=== PATIENT | female | born 1955 | race Caucasian/White ===

== ENCOUNTER 2019-09-18 21:37 | Emergency (ER) | payer OTHER ==
[~2019-09-18] VITALS: Ht 175.3 cm; Wt 108.9 kg
[2019-09-18] MEDS ORDERED: ONDANSETRON HCL 4 MG/2 ML VIAL IV ONE (23:00)
[2019-09-18] MEDS ORDERED: SODIUM CHLORIDE 0.9% 1,000 ML IV ONE (23:00)
[2019-09-18 23:43] LABS: Basophils # (auto) 0 10 ^3/uL (0-0.2); Eosinophils # (auto) 0 10 ^3/uL (0-0.8); Eosinophils % (auto) 0.1 % (0.0-7.0); Hematocrit 39.2 % (36.0-46.0); Lymphocytes # (auto) 0.8 10 ^3/uL (0.4-5.4); Lymphocytes % (auto) 7.5 % (10.0-50.0); Mean Corpuscular Volume 101.4 fL (80.0-100.0); Monocytes # (auto) 0.5 10 ^3/uL (0-1.3); Red Blood Cells 3.87 10^6/uL (4.0-5.20)
[2019-09-18 23:45] LABS: Basophils % (auto) 0.4 % (0.0-2.0); Hemoglobin 13.2 g/dL (12.2-16.2); Mean Corpuscular Hemoglobin 34.2 pg (28.0-32.0); Mean Corpuscular Hgb Conc. 33.7 g/dL (32.0-36.0); Monocytes % (auto) 4.4 % (0.0-12.0); Neutrophils # (auto) 9.6 10 ^3/uL (1.6-8.6); Neutrophils % (auto) 87.6 % (37.0-80.0); Platelet Count (auto) 322 10^3/uL (140-450); Red Cell Distribution Width 13.2 % (11.8-14.3); White Blood Cell 10.9 10^3/uL (4.4-10.8)
[2019-09-18 23:51] LABS: INR 1.07 (0.9-1.15)
[2019-09-18 23:52] LABS: Albumin 3.2 g/dL (3.4-5.0); Anion Gap 8 (5-15); BUN/Creatinine Ratio 43.1; Blood Alcohol < 3.0 mg/dL (0-5); Blood Urea Nitrogen 28 mg/dL (7-18); Calcium 8.6 mg/dL (8.5-10.1); Carbon Dioxide 25 mmol/L (21-32); Chloride 103 mmol/L (98-107); GFR African American 119 mL/min; GFR Non-African American 98 mL/min; Glucose 130 mg/dL (74-106); Potassium 4.1 mmol/L (3.5-5.1); Sodium 136 mmol/L (136-145)
[2019-09-18 23:55] LABS: Alanine Aminotransferase 27 U/L (13-56); Alkaline Phosphatase 125 U/L (45-117); Aspartate Aminotransferase 19 U/L (15-37); Bilirubin, Total 1.3 mg/dL (0.2-1.0); Total Protein 6.6 g/dL (6.4-8.2)
[2019-09-19 00:46] LABS: Urine Bacteria NONE SEEN /hpf (None Seen); Urine Blood Negative /uL (Negative); Urine Mucus FEW (None Seen); Urine Specific Gravity 1.021 (1.001-1.035); Urine WBC <1 /hpf (0 - 5)
[2019-09-19 01:15] LABS: Alcohol, Urine < 3.0 mg/dL (0-10); Amphetamine Screen, Urine NEGATIVE (NEGATIVE); Barbiturate Scree,Urine NEGATIVE (NEGATIVE); Benzodiazephine Screen, Urine NEGATIVE (NEGATIVE); Cannabinoid Screen, Urine POSITIVE (NEGATIVE); Cocaine Screen, Urine NEGATIVE (NEGATIVE); Phencyclidine Screen, Urine NEGATIVE (NEGATIVE)
[2019-09-19 01:21] LABS: Opiate Scree,Urine NEGATIVE (NEGATIVE)
[2019-09-19 03:00] VITALS: BP 124/54
== END 2019-09-19 03:05 | disposition home or self-care (01) ==
LOC: EDBD 21:37 → ER 21:37
DX: K31.89 Other diseases of stomach and duodenum (principal); K21.9 Gastro-esophageal reflux disease without esophagitis; I10 Essential (primary) hypertension; F33.9 Major depressive disorder, recurrent, unspecified
CPT/HCPCS: 36415; 80053; 80307; 80320; 81001; 85025; 85610; 85730; 86850; 86900; 86901; 96361; 96374; 99283; J2405; J7030

== ENCOUNTER 2023-10-03 10:54 | Emergency (ER) | payer OTHER ==
[~2023-10-03] VITALS: Ht 170.2 cm; Wt 88.3 kg
[2023-10-03] MEDS: MECLIZINE HCL 25 MG TAB PO ONE (11:30)
[2023-10-03 11:44] LABS: Basophils # (auto) 0 10 ^3/uL (0-0.2); Basophils % (auto) 0.4 % (0.0-2.0); Eosinophils # (auto) 0 10 ^3/uL (0-0.8); Eosinophils % (auto) 0.5 % (0.0-7.0); Hematocrit 41.7 % (36.0-46.0); Hemoglobin 14.7 g/dL (12.2-16.2); Lymphocytes # (auto) 1.2 10 ^3/uL (0.4-5.4); Lymphocytes % (auto) 13.3 % (10.0-50.0); Mean Corpuscular Hemoglobin 37.2 pg (28.0-32.0); Mean Corpuscular Hgb Conc. 35.3 g/dL (32.0-36.0); Mean Corpuscular Volume 105.6 fL (80.0-100.0); Monocytes # (auto) 0.9 10 ^3/uL (0-1.3); Monocytes % (auto) 10.1 % (0.0-12.0); Neutrophils # (auto) 6.7 10 ^3/uL (1.6-8.6); Neutrophils % (auto) 75.7 % (37.0-80.0); Nucleated Red Blood Cells % 0.1 %; Red Blood Cells 3.95 10^6/uL (4.0-5.20); Red Cell Distribution Width 13.6 % (11.8-14.3); White Blood Cell 8.8 10^3/uL (4.4-10.8)
[2023-10-03 12:01] VITALS: BP 103/35; TEMP 98.5
[2023-10-03 12:02] LABS: Alanine Aminotransferase 25 U/L (7-40); Albumin 3.9 g/dL (3.2-4.8); Alkaline Phosphatase 142 U/L (46-116); Anion Gap 8 (5-15); Aspartate Aminotransferase 24 U/L (13-40); BUN/Creatinine Ratio 12.5 (10.0-20.0); Bilirubin, Total 0.8 mg/dL (0.2-1.0); Blood Urea Nitrogen 12 mg/dL (9-23); Calcium 9.5 mg/dL (8.7-10.4); Carbon Dioxide 26 mmol/L (20-30); Chloride 99 mmol/L (98-107); Glucose 96 mg/dL (74-106); Potassium 3.9 mmol/L (3.5-5.1); Sodium 133 mmol/L (136-145); Total Protein 6.5 g/dL (5.7-8.2)
[2023-10-03 12:05] LABS: Free T3 2.5 pg/mL (2.3-4.2); Free T4 (Free Thyroxine) 1.17 ng/dL (0.89-1.76)
[2023-10-03 13:01] VITALS: PULSE 103; RESP 18; O2SAT 99
[2023-10-03] MEDS ORDERED: MECL12.586 PO (13:01)
== END 2023-10-03 13:17 | disposition home or self-care (01) ==
LOC: ER 10:54
DX: S06.0X0A Concussion without loss of consciousness, initial encounter (principal); R42 Dizziness and giddiness; E86.0 Dehydration; I10 Essential (primary) hypertension; W18.09XA Striking against other object with subsequent fall, initial encounter; Y93.89 Activity, other specified; Y92.89 Other specified places as the place of occurrence of the external cause; Y99.8 Other external cause status
CPT/HCPCS: 36415; 70450; 80053; 84439; 84443; 84481; 85025; 99285; J8597

== ENCOUNTER 2023-11-01 14:31 | Emergency (ER) | payer OTHER ==
[~2023-11-01] VITALS: Ht 172.7 cm; Wt 86.4 kg
[~2023-11-01 14:31] MED LIST: MECL12.586 PO
[2023-11-01 15:29] VITALS: TEMP 98.5
[2023-11-01] MEDS: FUROSEMIDE 20 MG TAB PO ONE (15:32)
[2023-11-01 15:33] VITALS: PULSE 103; RESP 17; O2SAT 94
[2023-11-01 16:11] LABS: Basophils # (auto) 0 10 ^3/uL (0-0.2); Basophils % (auto) 0.4 % (0.0-2.0); Eosinophils # (auto) 0 10 ^3/uL (0-0.8); Lymphocytes # (auto) 1.2 10 ^3/uL (0.4-5.4); Neutrophils # (auto) 5.3 10 ^3/uL (1.6-8.6)
[2023-11-01 16:12] LABS: Eosinophils % (auto) 0.6 % (0.0-7.0); Hematocrit 47.1 % (36.0-46.0); Hemoglobin 15.8 g/dL (12.2-16.2); Lymphocytes % (auto) 16.5 % (10.0-50.0); Mean Corpuscular Hemoglobin 36.9 pg (28.0-32.0); Mean Corpuscular Hgb Conc. 33.5 g/dL (32.0-36.0); Monocytes # (auto) 0.8 10 ^3/uL (0-1.3); Monocytes % (auto) 10.5 % (0.0-12.0); Nucleated Red Blood Cells % 0.2 %; Platelet Count (auto) 298 10^3/uL (140-450); Red Blood Cells 4.28 10^6/uL (4.0-5.20); Red Cell Distribution Width 15.2 % (11.8-14.3); White Blood Cell 7.4 10^3/uL (4.4-10.8)
[2023-11-01 16:28] LABS: Alanine Aminotransferase 15 U/L (7-40); Albumin 3.7 g/dL (3.2-4.8); Alkaline Phosphatase 187 U/L (46-116); Anion Gap 10 (5-15); Aspartate Aminotransferase 30 U/L (13-40); Bilirubin, Total 1.1 mg/dL (0.2-1.0); Calcium 9.2 mg/dL (8.7-10.4); Carbon Dioxide 24 mmol/L (20-30); Chloride 105 mmol/L (98-107); Glucose 74 mg/dL (74-106); Potassium 4.1 mmol/L (3.5-5.1); Sodium 139 mmol/L (136-145)
[2023-11-01 16:29] LABS: Total Protein 6.7 g/dL (5.7-8.2)
[2023-11-01 16:30] LABS: BUN/Creatinine Ratio 8.6 (10.0-20.0); Blood Urea Nitrogen < 5 mg/dL (9-23)
[2023-11-01 16:31] LABS: Lactic Acid w/Reflex 2.3 mmol/L (0.4-2.0)
[2023-11-01 16:42] LABS: INR 1.1 (0.9-1.15); Partial Thromboplastin Time 29.7 SEC (24.5-34.5); Prothrombin Time 11.6 sec (9.3-11.8)
[2023-11-01] MEDS: ENOXAPARIN SOD 100 MG/1 ML SYRINGE SC SCH (17:03)
[2023-11-01] MEDS ORDERED: DABI150C5 PO (17:10)
[2023-11-01] MEDS ORDERED: ENO100SY SC (17:10)
[2023-11-01 17:47] LABS: Urine Bacteria None Seen /hpf (None Seen)
[2023-11-01 17:57] VITALS: BP 135/80; PULSE 90; RESP 18; O2SAT 96
[2023-11-01 18:00] LABS: Urine Blood Negative /uL (Negative); Urine Clarity Clear (Clear); Urine Color Colorless (Yellow); Urine Protein, UAD Negative (Negative); Urine Specific Gravity 1.006 (1.001-1.035); Urine Urobilinogen Normal (Negative); Urine WBC <1 /hpf (0 - 5)
== END 2023-11-01 17:58 | disposition home or self-care (01) ==
LOC: ER 14:31
DX: I82.401 Acute embolism and thrombosis of unspecified deep veins of right lower extremity (principal); I10 Essential (primary) hypertension
CPT/HCPCS: 36415; 71045; 80053; 81001; 83605; 83880; 85025; 85610; 85730; 93971; 96372; 99285; J1650

== ENCOUNTER 2024-09-28 12:39 | Emergency (ER) | payer OTHER ==
[~2024-09-28] VITALS: Ht 170.2 cm; Wt 55.0 kg
[~2024-09-28 12:39] MED LIST changes: +DABI150C5 PO; +ENO100SY SC
--- NOTE | 2024-09-28 12:53 | ED.PDOC ---
History of Present Illness HPI Comments 69-year-old female brought by paramedics from [facility] because she will was having loss of weight. She does drink alcohol every day. Two bottles of wine every day for several years. She has been seen at [facility] for same condition for which they have not done anything. She also is complaining of swelling of her lower extremities without shortness a breath chest pain. Blood pressure systolic was in the 90s on arrival. Denies any other symptoms. Chief Complaint: General Weakness Time Seen by MD: 12:40 Primary Care Provider: SEAFORD Reviewed Notes: Nurses Notes, Medications, Allergies Allergies: Coded Allergies: NO KNOWN ALLERGIES (Unverified , 09/18/19) Home Meds Active Scripts Dabigatran Etexilate Mesylate (Pradaxa) 150 Mg Cap, 1 CAP PO BID, #60 CAP 1 Refill Prov:SHANIQUE ROSALES 11/01/23 Enoxaparin Sodium (Lovenox) 100 Mg/1 Ml Inj, 90 MG SC Q12HR for 5 Days, #10 INJ Prov:SHANIQUE ROSALES 11/01/23 Meclizine Hcl (Meclizine Hcl) 12.5 Mg Tab, 25 MG PO BIDP PRN, #20 MG 0 Refills Prov:MALAIKA WILSON MD 10/03/23 Information Source: Patient, Emergency Med Personnel Mode of Arrival: EMS Severity: Moderate Timing: Days Duration: Since onset Past Medical History PAST MEDICAL HISTORY: Depression, HTN Surgical History: Denies all surgeries HEALTHCARE MANAGEMENT CONSULTANT History: No Pertinent HEALTHCARE MANAGEMENT CONSULTANT History Family History Family History: Reviewed,noncontributory to illness Social History Smoker: Non-Smoker Alcohol: Heavy Drugs: Denies Drug Use Lives In: Home Constitutional: reports: fatigue; denies: chills, diaphoresis, fever, malaise, sweats, weakness, others EENTM: denies: blurred vision, double vision, ear bleeding, ear discharge, ear drainage, ear pain, ear ringing, eye pain, eye redness, hearing loss, mouth pain, mouth swelling, nasal discharge, nose bleeding, nose congestion, nose pain, photophobia, tearing, throat pain, throat swelling, voice changes, others Respiratory: denies: cough, hemoptysis, orthopnea, SOB at rest, shortness of breath, SOB with excertion, stridor, wheezing, others Cardiovascular: denies: chest pain, dizzy spells, diaphoresis, Dyspnea on exertion, edema, irregular heart beat, left arm pain, lightheadedness, palpitations, PND, syncope, others Gastrointestinal: denies: abdomen distended, abdominal pain, blood streaked bowels, constipated, diarrhea, dysphagia, difficulty swallowing, hematemesis, melena, nausea, poor appetite, poor fluid intake, rectal bleeding, rectal pain, vomiting, others Genitourinary: denies: abnormal vagina bleeding, burning, dyspareunia, dysuria, flank pain, frequency, hematuria, incontinence, pain, , vagina d ischarge, urgency, others Neurological: denies: dizziness, fainting, headache, left sided numbness, left sided weakness, numbness, paresthesia, pre-existing deficit, right sided numbness, right sided weakness, seizure, speech problems, tingling, tremors, weakness, others Musculoskeletal: denies: back pain, gout, joint pain, joint swelling, muscle pain, muscle stiffness, neck pain, others Integumetry: denies: bruises, change in color, change in hair/nails, dryness, laceration, lesions, lumps, rash, wounds, others Allergic/Immunocompromised: denies: Difficulty Healing, Frequent Infections, Hives, Itching, others Hematologic/Lymphatic: denies: anemia, blood clots, easy bleeding, easy bruising, swollen glands, others Endocrine: denies: excessive hunger, excessive sweating, excessive thirst, excessive urination, flushing, intolerance to cold, intolerance to heat, unexplained weight gain, unexplained weight loss, others Psychiatric: denies: anxiety, bipolar disorder, depression, hopeless, panic disorder, schizophrenia, sleepless, suicidal, others Physical Exam General Appearance: Moderate Distress HEENT: Normal ENT Inspection, Pharynx Normal, TMs Normal Neck: Full Range of Motion, Non-Tender, Normal, Normal Inspection Respiratory: Chest Non-Tender, Lungs Clear, No Accessory Muscle Use, No Respiratory Distress, Normal Breath Sounds Cardiovascular: No Edema, No JVD, No Murmur, No Gallop, Normal Peripheral Pulses, Regular Rate/Rhythm Breast Exam: Deferred Gastrointestinal: No Organomegaly, Non Tender, No Pulsatile Mass, Normal Bowel Sounds, Soft Genitalia: Deferred Pelvic: Deferred Rectal: Deferred Extremities: Swelling (Bilateral lower extremity) Musculoskeletal : Apperance: Normal Neurologic: Alert, diagnostic cardiac sonographer II-XII nml as Tested, No Motor Deficits, Normal Affect, Normal Mood, No Sensory Deficits Cerebellar Function: NOT DONE Reflexes: NOT DONE Skin: Dry, Normal Color, Warm Peripheral Pulses: 3+ Radial (R), 3+ Radial (L) Lymphatic: No Adenopathy Was a procedure done? Was a procedure done?: No Differential Dx Considerations may include: Alcohol use Dehydration X-Ray, Labs, Meds, VS Vital Signs Date Time Temp Pulse Resp B/P (MAP) Pulse Ox O2 Delivery O2 Flow Rate FiO2 09/28/24 15:30 97.0 56 15 106/30 (55) 98 97.0 09/28/24 13:51 93/39 (57) 09/28/24 13:49 98.1 54 16 91/22 (45) 100 98.1 09/28/24 12:44 98.6 58 18 94/58 (70) 98 98.6 Current Medications Medications (Trade) Dose Ordered Sig/José Miguel Route Start Time Stop Time Status Last Admin Sodium Chloride 1,000 ml @ 1,000 mls/hr Q1H ONCE IV 09/28/24 13:00 09/28/24 13:59 DC 09/28/24 14:05 Patient alert. Complaining of lower extremity swelling. Vitals stable. Answering all questions. Denies shortness a breath. Denies chest pain. No discoloration of the leg. Counseled patient on effects of drinking for 15 minutes. Establish intravenous access. Was given fluids. DVT study reviewed no acute process chronic. She was placed on Pradaxa on August. There is improvement from previous ultrasound that was done at outside facility. She is currently on blood thinner. She is on metoprolol is the reason why her heart rate well controlled. [facility] physician agreed that she can go home since she is on blood thinner and there is resolution. She was told to continue taking her blood thinner. [facility] approved ER visit [id number]. Satisfied with going home. On re-evaluation there is no shortness a breath no chest pain. Explained to the patient. Was told to follow up with her primary care physician. Was told to come back if there is any problem. [address] [address] Ph: [phone] DIAGNOSTIC IMAGING Diagnostic Imaging Report : [id number] Signed PATIENT: DAVIDSON HARMAN ACCT: [id number] UNIT: [id number] : 1955 LOC: ER ROOM / BED: / AGE / SEX: 69 / F ADM STATUS: REG ER SERVICE [id number] ORDERING PHYSICIAN: MERRY ENGLAND MD PROCEDURE(s): BLDVT - BiLat Lower DVT REASON: dvt ORDER NUMBER(s): [id number], ACCESSION NUMBER(s): [id number] Procedure: US BiLat Lower DVT Study Date and Requested Time: 09/28/2024 01:20 PM Study dvt Comparison: US RT LOWER DVT on DOS: 11/01/23 Technique: Multiple high resolution ferreira-scale images with and without compression obtained of the bilateral lower extremity veins, including the common femoral vein, deep femoral vein, proximal mid and distal superficial femoral vein, and popliteal vein. Additional limited images of the greater s aphenous vein also obtained. Augmentation performed as indicated. Color and spectral doppler flow images obtained as indicated. Findings: There is linear echogenicity within the proximal right superficial femoral vein. Otherwise, No visible intraluminal venous thrombus and no evidence of incompressibility or abnormal color or spectral Doppler flow visualized in the left proximal superficial femoral vein and remainder of the bilateral lower extremity veins including, the common femoral vein, deep femoral vein, mid and distal superficial femoral vein and popliteal vein. Greater saphenous vein grossly unremarkable. Impression: Chronic deep vein thrombosis within the right proximal superficial femoral vein. Otherwise, no sonographic evidence of bilateral lower extremity deep venous thrombosis. Critical Result: Chronic right proximal superficial femoral vein DVT. Findings discussed with Yuly Paris , at 09/28/2024 02:09 PM, and acknowledged receipt and understanding of the findings. ATED BY: GRACE MALDONADO DO DICTATED DATE/TIME: 09/28/241411 SIGNED BY: GRACE MALDONADO DO SIGNED DATE/TIME: 09/28/241411 CC: Time of 1ST Reevaluation: 12:52 Reevaluation 1ST: Improved Patient Education/Counseling: Diagnosis, Treatment, Prognosis, Need For Follow Up Family Education/Counseling: No Family Present SEPSIS Sepsis Screen Physician Orders Bilat Lower Dvt (09/28/24 12:48) Vital Signs Date Time Temp Pulse Resp B/P (MAP) Pulse Ox O2 Delivery O2 Flow Rate FiO2 09/28/24 15:30 97.0 56 15 106/30 (55) 98 97.0 09/28/24 13:51 93/39 (57) 09/28/24 13:49 98.1 54 16 91/22 (45) 100 98.1 09/28/24 12:44 98.6 58 18 94/58 (70) 98 98.6 Medications Medications Dose Ordered Sig/José Miguel Route Start Time Stop Time Status Last Admin Dose Admin Sodium Chloride 1,000 ml @ 1,000 mls/hr Q1H ONCE IV 09/28/24 13:00 09/28/24 13:59 DC 09/28/24 14:05 Departure 1 Departure Time of Disposition: 12:53 Impression: Primary Impression: Dehydration Additional Impression: Superficial vein thrombosis Disposition: 01 HOME / SELF CARE / HOMELESS Condition: Good Discharged With: Self Critical Care Note Critical Care Time?: No Stability Stability form required: No Heart Score Heart Score: Heart Score Response (Comments) Value History N/A 0 EKG N/A 0 Age N/A 0 Risk Factors N/A 0 Troponin N/A 0 Total 0 I personally scribed for MERRY ENGLAND MD ([email or web address]) on 09/28/24 at 14:26. Electronically submitted by Dilcia Christianson ([email or web address]). MERRY ENGLAND MD Sep 28, 2024 12:53
[2024-09-28] MEDS: SODIUM CHLORIDE 0.9% 1,000 ML IV ONE (14:05)
--- NOTE | 2024-09-28 14:14 | DVH ---
Procedure: US BiLat Lower DVT Study Date and Requested Time: 09/28/2024 01:20 PM Study dvt Comparison: US RT LOWER DVT on DOS: 11/01/23 Technique: Multiple high resolution ferreira-scale images with and without compression obtained of the bi lateral lower extremity veins, including the common femoral vein, deep femoral vein, proximal mid and distal superficial femoral vein, and popliteal vein. Additional limited images of the greater saphen ous vein also obtained. Augmentation performed as indicated. Color and spectral doppler flow images o btained as indicated. Findings: There is linear echogenicity within the proximal right superficial femoral vein. Otherwise, No visib le intraluminal venous thrombus and no evidence of incompressibility or abnormal color or spectral Do ppler flow visualized in the left proximal superficial femoral vein and remainder of the bilateral lo wer extremity veins including, the common femoral vein, deep femoral vein, mid and distal superficia l femoral vein and popliteal vein. Greater saphenous vein grossly unremarkable. Impression: Chronic deep vein thrombosis within the right proximal superficial femoral vein. Otherwise, no sonogr aphic evidence of bilateral lower extremity deep venous thrombosis. Critical Result: Chronic right proximal superficial femoral vein DVT. Findings discussed with Yuly Paris , at 09/28/2024 02:09 PM, and acknowledged receipt and understand ing of the findings.
[2024-09-28 15:30] VITALS: BP 106/30; PULSE 56; RESP 15; TEMP 97; O2SAT 98
== END 2024-09-28 17:03 | disposition home or self-care (01) ==
LOC: EDBD 12:39 → ER 12:39
DX: E86.0 Dehydration (principal); I82.511 Chronic embolism and thrombosis of right femoral vein; I10 Essential (primary) hypertension; F32.A Depression, unspecified
CPT/HCPCS: 93970; 96360; 99284; J7030